=== PATIENT | male | born 1990 | race Asian ===

== ENCOUNTER 2017-02-15 18:08 | Emergency (ER) | payer OTHER, SELFPAY ==
--- NOTE | 2017-03-01 15:51 | ER ---
ADMIT: 02/15/2017 RM/LOC: ER [facility] MR#: [id number] [facility] [id number] MELISA KENNEDY [address] [place] [address] Emergency Room Report SEX: M AGE: 26 : 1990 DATE: 02/15/2017 This 26-year-old male, dove into shallow end of swimming pool causing laceration to his forehead. See T sheet for history and physical. CT scan of the head was negative. CT of the C-spine was negative. Laceration was repaired with #5, 4-0 Prolene, this was approximately 3 cm. Instructed to remove the sutures in 10-14 days. Charly Richard MD/ isabella JOB #: [id number] CC: Jaime Balbuena MD, Attending Physician Kelli Grimm MD, Family Physician
== END 2017-02-15 19:20 | disposition home or self-care (01) ==
LOC: ER 18:08
PROC: 0HQ1XZZ Repair Face Skin, External Approach (ICD-10-PCS; principal; 2017-02-15)
DX: S01.81XA Laceration without foreign body of other part of head, initial encounter (principal); Z23 Encounter for immunization; W16.011A Fall into swimming pool striking water surface causing drowning and submersion, initial encounter